=== PATIENT | male | born 1955 | race Caucasian/White ===

== ENCOUNTER → 2020-05-22 | Outpatient (CLI) | payer BC ==
[~2020-05-22] MED LIST: ADULT LOW DOSE81 MG PO; BYSTOLIC10 MG PO; CRESTOR10 MG PO; EFFIENT10 MG PO; FISH OIL 1,001000 MG PO; FISHOIL PO; PLAVIX 75 MG TA75 MG PO; PRAVACHOL40 MG PO; ZESTRIL5 MG PO
== END ==
LOC: SJCVCIMAG 05-08 08:07
PROVIDERS: ATTEND Internal Medicine Cardiovascular Disease
DX: I07.1 Rheumatic tricuspid insufficiency (principal); R06.00 Dyspnea, unspecified; I25.10 Atherosclerotic heart disease of native coronary artery without angina pectoris; E78.5 Hyperlipidemia, unspecified; I10 Essential (primary) hypertension; F17.200 Nicotine dependence, unspecified, uncomplicated; Z79.899 Other long term (current) drug therapy; Z79.82 Long term (current) use of aspirin